=== PATIENT | female | born 1950 | race Caucasian/White ===

== ENCOUNTER → 2017-01-29 | Outpatient (CLI) | payer OTHER, MEDICARE ==
--- NOTE | 2017-01-29 21:32 | DI ---
RIGHT FOOT, 01/29/2017 3:41 PM: Clinical History: Hallux rigidus of the right foot. Previous Exam: None at this facility. 3 weightbearing views are submitted. There is no acute soft tissue, osseous, or joint abnormality. Se davis joint space narrowing with bony proliferative change is present at the first metatarsophalangeal joint. Reading: Degenerative arthritic changes of the first metatarsophalangeal joint with bony spurring on the dorsa l aspect of the distal head of the first metatarsal bone.
== END ==
LOC: MOB RAD 15:45
PROVIDERS: ATTEND Podiatrist Foot & Ankle Surgery
DX: M79.671 Pain in right foot (principal); M20.21 Hallux rigidus, right foot
CPT/HCPCS: 73630

== ENCOUNTER 2017-02-06 06:32 | Day surgery (SDC) | payer OTHER, MEDICARE ==
[~2017-02-06 06:32] MED LIST: CLINDAMYCIN 900 MG IV ONE; LIDOCAINE W/ SODIUM BICARB 0.5 ML SYR ONE; Lactated Ringers 1,000 ML PRIMARY IV ONE
[2017-02-06 07:30] VITALS: RESP 18; TEMP 99.3
[2017-02-06] MEDS ORDERED: BETAMET ACET/BETAMET NA PH 6 MG/1 ML - 5 ML ONE (07:39)
[2017-02-06] MEDS ORDERED: BUPivacaine Inj 0.5% PF (5mg/ml) 10ml vial ONE (07:39)
[2017-02-06] MEDS ORDERED: fentaNYL Inj 100 MCG/2 ML VIAL ONE (09:51)
--- NOTE | 2017-02-06 10:39 | PDOC(PROG) ---
Last Taken Vital Signs: Vital Signs - Last Taken Temperature 99.3 F 02/06/17 07:15 Pulse Rate 80 02/06/17 07:15 Respiratory Rate 18 02/06/17 07:15 Blood Pressure 122/93 02/06/17 07:15 Pulse Ox Subjective: I was met on arrival to PACU by Mohit stating the Mirna's initial EKG reading was of atrial flutter. They had proceeded to get a 12 lead, but she converted back to sinus rhythm. Objective: Mohit showed me her EKG read out with atrial flutter. Assessment: 1. Episode of atrial flutter, documented. Plan: We will cancel surgery for today. Mohit is referring her back to [facility] to arrange cardiac workup, and ordered a 48 hour holter monitor. We both spoke with Mirna regarding the findings. I will see her in follow-up after her cardiac workup.
== END 2017-02-06 08:17 ==
LOC: SDSC 06:32
PROVIDERS: ATTEND Podiatrist Foot & Ankle Surgery
DX: Z53.09 Procedure and treatment not carried out because of other contraindication (principal); I48.92 Unspecified atrial flutter; M20.21 Hallux rigidus, right foot; M79.671 Pain in right foot
CPT/HCPCS: J0702; J3490; J3010; J7120; S0077

== ENCOUNTER → 2017-02-18 | Outpatient (CLI) | payer OTHER, MEDICARE ==
--- NOTE | 2017-02-24 13:58 | HOLTER ---
[facility] [place] Interpretive Statements This is a 48 hour Holter study done for "arrhythmia." There are three diary "events" where the patient marked the tracing and logged activities of "sleeping", "nap", and "sleeping" but did not note any symptoms. These three events correlated with normal sinus rhythm at rates of 102, 78, and 105 BPM-- all without ectopy. At 9:33 to 9:35 AM day 1 there was over a minute of SVT at 139 BPM but no symptoms noted then. There were no significant bradycardias and no pauses > 2 seconds. There were a total of 221,627 recorded beats with the minimum rate being 57 BPM and the maximum being 139 BPM with the average being 79. There was no atrial fibrillation. Not including SVT episodes, there were 69 possible atrial ectopics. There were 113 ventricular ectopics with all being singlets. IMPRESSION: Abnormal 48 hour Holter for prolonged SVT episode but poor correlation without reported symptoms. Electronically Signed On 02-25-17 14:25:16 MDT by Suhk Levi MD [id number]
== END ==
LOC: EKG 13:27
PROVIDERS: ATTEND Nurse Practitioner Family
DX: I48.92 Unspecified atrial flutter (principal)
CPT/HCPCS: 93225; 93226; 93227

== ENCOUNTER → 2017-02-27 | Outpatient (CLI) | payer OTHER, MEDICARE ==
[2017-02-27 09:02] LABS: BASOPHILS # (AUTO) 0.04 10*3/UL; BASOPHILS % (AUTO) 0.9 % (0-1); EOSINOPHILS # (AUTO) 0.06 10*3/UL; EOSINOPHILS % (AUTO) 1.3 % (0-8); HEMATOCRIT 38.7 % (37.0-47.0); HEMOGLOBIN 11.8 g/dL (12.0-16.0); LYMPHOCYTES # (AUTO) 2.09 10*3/uL; MEAN CORPUSCULAR HEMOGLOBIN 26.3 PG (27-31); MEAN CORPUSCULAR HGB CONC 30.5 g/dL (33-37); MEAN CORPUSCULAR VOLUME 86.4 FL (81-99); MEAN PLATELET VOLUME 9.8 FL (7.4-12.2); MONOCYTES # (AUTO) 0.36 10*3/UL (0.3-0.8); MONOCYTES % (AUTO) 7.9 % (5-15); NEUTROPHILS # (AUTO) 2.02 10*3/UL; NEUTROPHILS % (AUTO) 44.2 % (50-80); RED BLOOD COUNT 4.48 10^6/uL (4.20-5.40)
[2017-02-27 09:07] LABS: PLATELET MORPHOLOGY COMMENT NORMAL MORPHOLOGY (NORM); RBC MORPHOLOGY COMMENT NORMAL MORPHOLOGY (NORM); WBC MORPHOLOGY COMMENT NORMAL MORPHOLOGY (NORM)
[2017-02-27 09:09] LABS: BLOOD UREA NITROGEN 20 mg/dL (7-22); BUN/CREATININE RATIO 22.22 (6-20); CALCIUM 9.5 mg/dL (8.7-10.7); CHOL/HDL RATIO 2.54 RATIO (0-4.0); EST GLOMERULAR FILTRATION > 60 (>60 ml/min/1.73m(2)); HDL CHOLESTEROL 85 mg/dL (40-150); SERUM ALBUMIN 4.6 g/dL (3.5-4.8); SERUM CHOLESTEROL 216 mg/dL (120-200)
== END ==
LOC: LAB 08:41
PROVIDERS: ATTEND Nurse Practitioner Family
DX: I47.1 Supraventricular tachycardia (principal)
CPT/HCPCS: 36415; 80053; 80061; 84443; 85025